=== PATIENT | female | born 1955 | race Caucasian/White ===

== ENCOUNTER → 2016-04-07 | Outpatient (CLI) | payer OTHER ==
--- NOTE | 2016-04-07 11:45 | DX ---
Right Elbow 3 Views. Reason for examination: Pain following trauma. Findings: A definite fracture is not identified. There is a prominent fat pad sign suggesting a joint effusion/hemarthrosis. No radiopaque foreign body is seen. The bone alignment is normal. Impression: Prominent fat pad raises a possibility of a radiographically occult fracture with conserv ative management and follow-up radiography recommended as clinically directed. Findings discussed with Dr. Brambila from [facility] urgent care.
== END ==
LOC: BMCIMAGING 11:04
PROVIDERS: ATTEND Family Medicine
DX: M25.521 Pain in right elbow (principal)

== ENCOUNTER → 2016-08-05 | Outpatient (CLI) | payer OTHER | LOC: FIMAGING 08:12 | PROVIDERS: ATTEND Internal Medicine | DX: Z12.31 Encounter for screening mammogram for malignant neoplasm of breast (principal) | CPT/HCPCS: G0202 ==

== ENCOUNTER → 2016-12-03 | Outpatient (CLI) | payer OTHER | LOC: BMCIMAGING 16:53 | PROVIDERS: ATTEND Internal Medicine | DX: R05 Cough (principal); R91.1 Solitary pulmonary nodule ==

== ENCOUNTER → 2016-12-13 | Outpatient (CLI) | payer OTHER ==
[~2016-12-13] MED LIST: IOPAMIDOL (ISOVUE-300) 100 ML BTL ONE
== END ==
LOC: FIMAGING 15:59
PROVIDERS: ATTEND Internal Medicine
DX: R91.1 Solitary pulmonary nodule (principal); Z85.820 Personal history of malignant melanoma of skin
CPT/HCPCS: Q9967

== ENCOUNTER 2016-12-20 07:57 | Day surgery (SDC) | payer OTHER ==
[2016-12-20] MEDS ORDERED: fentaNYL 100 MCG/2 ML INJ ONE (09:07)
[2016-12-20] MEDS ORDERED: MIDAZOLAM 2 MG/2 ML VIAL ONE (09:07)
[2016-12-20] MEDS ORDERED: NALOXONE HCL 0.4 MG/ML INJ ONE (09:07)
[2016-12-20] MEDS ORDERED: FLUMAZENIL 0.5 MG/5 ML MDV IVP ONE (09:07)
[2016-12-20] MEDS ORDERED: ATROPINE SULFATE 1 MG/ML VIAL ONE (09:51)
[2016-12-20] MEDS ORDERED: NS 1,000 ML IV SCH (10:15)
[2016-12-20] MEDS ORDERED: LIDOCAINE 1% 300 MG/30 ML SDV ONE ×2 (10:36→10:37)
[2016-12-20 13:31] VITALS: BP 110/70; O2SAT 94
[2016-12-20] MEDS ORDERED: ONDANSETRON 4 MG/2 ML VIAL IVP PRN (19:28)
[2016-12-20] MEDS ORDERED: ACETAMINOPHEN 325 MG TAB PO ONE (19:30)
== END 2016-12-20 13:18 | disposition home or self-care (01) ==
LOC: FIMAGING 07:57
PROVIDERS: ATTEND Internal Medicine
PROC: 0BBG3ZX Excision of Left Upper Lung Lobe, Percutaneous Approach, Diagnostic (ICD-10-PCS; principal; 2016-12-20 10:50)
DX: C34.90 Malignant neoplasm of unspecified part of unspecified bronchus or lung (principal); C43.9 Malignant melanoma of skin, unspecified; E03.9 Hypothyroidism, unspecified
CPT/HCPCS: J0461; J2250; J2310; J3010

== ENCOUNTER → 2016-12-27 | Outpatient (CLI) | payer OTHER ==
[~2016-12-27] MED LIST changes: +GADOBUTROL 10 ML VIAL IVP ONE; -IOPAMIDOL (ISOVUE-300) 100 ML BTL ONE
== END ==
LOC: FIMAGING 14:29
PROVIDERS: ATTEND Internal Medicine
DX: Z12.82 Encounter for screening for malignant neoplasm of nervous system (principal); C43.9 Malignant melanoma of skin, unspecified; R90.89 Other abnormal findings on diagnostic imaging of central nervous system; J32.9 Chronic sinusitis, unspecified
CPT/HCPCS: A9585

== ENCOUNTER → 2017-08-26 | Outpatient (CLI) | payer OTHER | LOC: FIMAGING 15:51 | PROVIDERS: ATTEND Internal Medicine Medical Oncology | DX: Z85.118 Personal history of other malignant neoplasm of bronchus and lung (principal); Z85.820 Personal history of malignant melanoma of skin; Z90.2 Acquired absence of lung [part of]; Z98.890 Other specified postprocedural states ==

== ENCOUNTER → 2017-09-26 | Outpatient (CLI) | payer OTHER | LOC: FIMAGING 08:05 | PROVIDERS: ATTEND Internal Medicine | DX: Z12.31 Encounter for screening mammogram for malignant neoplasm of breast (principal) ==

== ENCOUNTER → 2017-11-24 | Outpatient (CLI) | payer OTHER ==
[~2017-11-24] MED LIST changes: -GADOBUTROL 10 ML VIAL IVP ONE; +IOPAMIDOL (ISOVUE-300) 100 ML BTL ONE
== END ==
LOC: FIMAGING 08:17
DX: C79.9 Secondary malignant neoplasm of unspecified site (principal)
CPT/HCPCS: Q9967

== ENCOUNTER → 2018-02-27 | Outpatient (CLI) | payer OTHER | LOC: FIMAGING 08:57 | PROVIDERS: ATTEND Internal Medicine Medical Oncology | DX: C79.9 Secondary malignant neoplasm of unspecified site (principal); Z98.890 Other specified postprocedural states | CPT/HCPCS: Q9967 ==

== ENCOUNTER → 2018-06-26 | Outpatient (CLI) | payer OTHER | LOC: FIMAGING 08:21 | PROVIDERS: ATTEND Internal Medicine Medical Oncology | DX: C79.9 Secondary malignant neoplasm of unspecified site (principal); Z01.89 Encounter for other specified special examinations | CPT/HCPCS: Q9967 ==